=== PATIENT | female | born 1985 | race Two or more races ===

== ENCOUNTER 2018-10-24 14:40 | Outpatient (CLI) | payer MEDICAID | END 2018-10-24 16:14 | disposition home or self-care (01) | LOC: OBT 14:40 → L-D 14:40 → OBT 16:14 | DX: O40.3XX0 Polyhydramnios, third trimester, not applicable or unspecified (principal); Z3A.38 38 weeks gestation of pregnancy | CPT/HCPCS: 76818 ==